=== PATIENT | male | born 1955 | race Caucasian/White ===

== ENCOUNTER 2017-02-18 11:37 | Day surgery (SDC) | payer BC ==
[~2017-02-18] VITALS: Ht 170.2 cm; Wt 91.4 kg
[2017-02-18 12:26] VITALS: Ht 170.2 cm; Wt 91.4 kg
[2017-02-18] MEDS ORDERED: METF1000 PO (12:40)
[2017-02-18] MEDS ORDERED: SITA100T8 PO (12:40)
[2017-02-18] MEDS ORDERED: GLIPIZIDE (12:40)
[2017-02-18] MEDS ORDERED: INSULIN REGULAR, HUMAN 100 UNIT/1 ML 3ML VIAL SC SCH (13:30)
[2017-02-18] MEDS ORDERED: PROPOFOL 40 ML ONE (14:07)
[2017-02-18 14:11] VITALS: BP 130/59; PULSE 94; RESP 16
[2017-02-18 15:09] VITALS: BP 103/75; RESP 14
--- NOTE | 2017-02-18 15:20 | OPPN ---
Date/Time of Note Date/Time of Note DATE: 02/18/17 TIME: 15:15 Operative Report Free Text/Dictation A wait for biopsy report follow-up as outpatient continue PPI Preoperative Diagnosis Gastroesophageal acid reflux Gastric pain Postoperative Diagnosis Distal esophagitis with Redmond's-like membrane from 38-39 cm Antral gastritis with erosions Operation/Procedure Performed EGD biopsy of the antrum and gastroesophageal junction to rule out Redmond's Provider: ACE NAILS MD web press operator assistant: CANDELARIO GARCIA MD Anesthesia Type: MAC Estimated blood loss: none Transfusion Required: no Specimens Antral biopsy to rule out H pylori Distal esophageal biopsy to rule out Redmond's Grafts/Implants: none Complications: no ACE NAILS MD Feb 18, 2017 15:20
--- NOTE | 2017-02-18 15:23 | OPPN ---
Date/Time of Note Date/Time of Note DATE: 02/18/17 TIME: 15:21 Operative Report Preoperative Diagnosis Screening colonoscopy Postoperative Diagnosis Normal colonoscopy Operation/Procedure Performed Colonoscopy Provider: ACE NAILS MD assistant professor: CANDELARIO GARCIA MD Anesthesia Type: MAC Estimated blood loss: none Transfusion Required: no Specimen: none Grafts/Implants: none Complications: no ACE NAILS MD Feb 18, 2017 15:23
--- NOTE | 2017-02-19 02:17 | GILP ---
DATE OF PROCEDURE: 02/18/2017 PREOPERATIVE DIAGNOSIS: Screening colonoscopy. POSTOPERATIVE DIAGNOSIS: Normal colonoscopy. ANESTHESIA: By Michael Curiel MD. DESCRIPTION OF PROCEDURE: After EGD, further sedation monitoring continued by the anesthesiologist. Rectal exam done. Advanced a Olympus video colonoscope all the way to cecum. Ileocecal valve and appendiceal opening identified. Cecum, ascending colon, transverse colon, descending colon, sigmoid colon were essentially normal. Upon removal of scope, the patient had no complication. PLAN: Follow the patient in 2 weeks and repeat colonoscopy in 10 years. Dictated By: Karuna Sigala MD /chelle/grs /Document#: [id number]
--- NOTE | 2017-02-19 02:17 | GILP ---
DATE OF PROCEDURE: 02/18/2017 PREOPERATIVE DIAGNOSIS: Gastroesophageal acid reflux and epigastric pain. POSTOP DIAGNOSIS: Distal esophagitis with Redmond's-like membrane from 38-39 cm. Antral gastritis with erosions. ANESTHESIA: Michael Curiel MD. DESCRIPTION OF PROCEDURE: The patient was put in left lateral decubitus. After obtaining informed consent, was sedated, monitored by the anesthesiologist. The Olympus video panendoscope easily advanced into the esophagus, stomach and duodenum. Mild changes in the distal esophagus with Redmond's- like membrane between 38-39 cm with mild distal esophagitis noted. Later 4 quadrant biopsies were done. In the stomach, antral gastritis was noted. The rest of the stomach was unremarkable. Random biopsy of this was also done to rule out any H. pylori. Duodenal bulb is normal. Upon removal of scope, the patient had no complication. PLAN: Await for biopsy report. Follow up as outpatient. Continue PPI. Dictated By: Karuna Sigala MD /chelle/alexandra /Document#: [id number]
== END 2017-02-18 18:32 | disposition home or self-care (01) ==
LOC: GIL 11:37
PROVIDERS: ATTEND Internal Medicine
DX: Z12.11 Encounter for screening for malignant neoplasm of colon (principal); K29.50 Unspecified chronic gastritis without bleeding; K20.9 Esophagitis, unspecified; E78.5 Hyperlipidemia, unspecified; E11.9 Type 2 diabetes mellitus without complications; I10 Essential (primary) hypertension; E66.9 Obesity, unspecified; Z68.31 Body mass index [BMI] 31.0-31.9, adult; Z90.49 Acquired absence of other specified parts of digestive tract; N40.0 Benign prostatic hyperplasia without lower urinary tract symptoms; M15.9 Polyosteoarthritis, unspecified
CPT/HCPCS: 43239; 45378; 82962; 88305; 88312; 88313; J1815; Z7610